=== PATIENT | male | born 1985 | race Two or more races ===

== ENCOUNTER 2016-07-25 17:13 | Emergency (ER) | payer SELFPAY ==
[~2016-07-25] VITALS: Ht 170.2 cm; Wt 89.8 kg
[2016-07-25 17:16] VITALS: BP 128/79
[2016-07-25] MEDS ORDERED: DIPHTH,PERTUSS(ACELL),TET TOX 0.5 ML DISP.SYRIN. VAX IM ONE (17:45)
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
[2016-07-25] MEDS ORDERED: NAPROXEN 500 MG TABLET PO STA (18:20)
[2016-07-25] MEDS ORDERED: CYCLOBENZAPRINE 10 MG TABLET. PO ONE (18:30)
[2016-07-25] MEDS ORDERED: HYDROcodone/APAP 5/325MG 1 TAB TABLET PO ONE (18:30)
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
== END 2016-07-25 18:48 | disposition home or self-care (01) ==
LOC: ER 17:13
DX: S60.221A Contusion of right hand, initial encounter (principal); S90.31XA Contusion of right foot, initial encounter; S80.01XA Contusion of right knee, initial encounter; Z88.0 Allergy status to penicillin; Y08.89XA Assault by other specified means, initial encounter; Y93.89 Activity, other specified; Y99.8 Other external cause status; Y92.89 Other specified places as the place of occurrence of the external cause
CPT/HCPCS: 73130; 73630; 90471; 90715; 99284-25

== ENCOUNTER 2016-10-11 10:13 | Emergency (ER) | payer SELFPAY ==
[~2016-10-11] VITALS: Ht 175.3 cm; Wt 95.3 kg
[2016-10-11 10:57] VITALS: BP 128/60
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
[2016-10-11] MEDS ORDERED: CYCL10TA2 PO (12:57)
[2016-10-11] MEDS ORDERED: DICL50TA4 PO (12:57)
[2016-10-11] MEDS ORDERED: METH4TAB2 PO (12:57)
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
== END 2016-10-11 12:58 | disposition home or self-care (01) ==
LOC: ER 10:13
DX: M77.9 Enthesopathy, unspecified (principal); M19.90 Unspecified osteoarthritis, unspecified site; Z88.0 Allergy status to penicillin; Y08.89XA Assault by other specified means, initial encounter; Y93.89 Activity, other specified; Y92.89 Other specified places as the place of occurrence of the external cause; Y99.8 Other external cause status
CPT/HCPCS: 73030; 99284

== ENCOUNTER 2017-03-16 16:22 | Emergency (ER) | payer SELFPAY ==
[2017-03-16 16:56] LABS: ADD MAN DIFF? NO
[2017-03-16 16:57] LABS: BASO # 0.1 x10^3/uL (0.0-0.2); BASO % 1 % (0-3); EOS # 0.2 x10^3/uL (0.0-0.7); EOS % 2 % (0-3); HEMATOCRIT 43.7 % (39.0-53.0); HEMOGLOBIN 14.5 g/dL (13.0-17.5); LYMPH # 2.9 x10^3/uL (1.0-4.8); LYMPH % 31 % (24-48); MEAN CORPUSCULAR HEMOGLOBIN 28 pg (25-35); MEAN CORPUSCULAR HGB CONC 33 g/dL (31-37); MEAN CORPUSCULAR VOLUME 84 fL (79-100); MONO # 0.4 x10^3/uL (0.0-1.1); MONO % 4 % (0-9); NEUT # 5.9 x10^3uL (1.8-7.7); NEUT % 62 % (31-73); PLATELET COUNT 302 x10^3/uL (140-400); RED CELL DISTRIBUTION WIDTH 14.1 % (11.5-14.5); WHITE BLOOD COUNT 9.5 x10^3/uL (4.0-11.0)
[2017-03-16 17:10] LABS: ANION GAP 12 (6-14); BLOOD UREA NITROGEN 12 mg/dL (8-26); BUN/CREATININE RATIO 13 (6-20); CARBON DIOXIDE 24 mmol/L (21-32); CHLORIDE 104 mmol/L (98-107); CREATININE 0.9 mg/dL (0.7-1.3); GFR 97.2; GLUCOSE 163 mg/dL (70-99); POTASSIUM 3.9 mmol/L (3.5-5.1); SODIUM 140 mmol/L (136-145)
[2017-03-16 17:10] LABS: D-DIMER 0.38 ug/mlFEU (0.00-0.50)
[2017-03-16 17:15] LABS: ALBUMIN 3.5 g/dL (3.4-5.0); ALBUMIN/GLOBULIN RATIO 0.9 (1.0-1.7); ALK PHOS 119 U/L (46-116); ALT (SGPT) 38 U/L (16-63); AST (SGOT) 23 U/L (15-37); TOTAL BILIRUBIN 0.4 mg/dL (0.2-1.0); TOTAL PROTEIN 7.2 g/dL (6.4-8.2)
[2017-03-16 17:18] LABS: TROPONINI < 0.017 ng/mL (0.000-0.055)
[2017-03-16] MEDS: KETOROLAC 15 MG/ML VIAL. IV ×2 (17:57)
== END 2017-03-16 18:06 | disposition home or self-care (01) ==
LOC: ER 16:22
DX: M94.0 Chondrocostal junction syndrome [Tietze] (principal); J06.9 Acute upper respiratory infection, unspecified; M19.90 Unspecified osteoarthritis, unspecified site; F17.200 Nicotine dependence, unspecified, uncomplicated; Z88.0 Allergy status to penicillin
CPT/HCPCS: 36415; 71046; 80053; 84484; 85025; 85379; 93005; 96374; 99285-25; J1885

== ENCOUNTER 2017-12-05 01:44 | Emergency (ER) | payer SELFPAY ==
[~2017-12-05] VITALS: Ht 177.8 cm; Wt 99.8 kg
[~2017-12-05 01:44] MED LIST: CYCL10TA2 PO; DICL50TA4 PO; IBUP-1007 PO; METH4TAB2 PO
[2017-12-05 01:47] VITALS: BP 132/81
--- NOTE | 2017-12-05 03:05 | PHYS DOC ---
Past Medical History Past Medical History: Arthritis Past Surgical History: No Surgical History Alcohol Use: Rarely Drug Use: None Adult General Chief Complaint Chief Complaint: SHOULDER INJURY HPI HPI Patient is a 32 year old male who presents with shoulder pain. The patient states 4 days ago he was leaning out some gutters. He was standing on a 6 foot ladder. He estimates that his feet were about 4 feet off the ground when he lost his balance and fell from the ladder. He landed on the left shoulder. Since then, he has had worsening pain with some swelling over the anterior aspect. He denies any loss of motor strength or sensation. He complains primarily of pain in that shoulder. Review of Systems Review of Systems Constitutional: Denies fever or chills Eyes: Denies HENT: Denies Respiratory: Denies GI: Denies abdominal pain Musculoskeletal: Denies back pain Integument: Denies rash Neurologic: Denies headache All other systems were reviewed and found to be within normal limits, except as documented in this note. Allergies Allergies Allergies Coded Allergies Type Severity Reaction Last Updated Verified Penicillins Allergy Unknown 03/16/17 Yes Physical Exam Physical Exam Constitutional: Well developed, well nourished, no acute distress HENT: Normocephalic, atraumatic, bilateral external ears normal, oropharynx moist Eyes: PERRLA, EOMI Neck: Normal range of motion, no midline tenderness Skin: Warm, dry, no bruising Back: normal exam Extremities: Her amount of swelling over the left shoulder compared to the right. The patient has full passive range of motion although with pain. He has 5 over 5 motor strength in that extremity. Sensation to light touch is intact over all dermatomes. Neurologic: Alert and oriented X 3 Psychologic: Affect normal Current Patient Data Vital Signs Vital Signs Date Time Temp Pulse Resp B/P (MAP) Pulse Ox O2 Delivery O2 Flow Rate FiO2 12/05/17 01:47 98.1 98 16 132/81 (98) 98 Room Air 98.1 EKG EKG [] Radiology/Procedures Radiology/Procedures [] Course & Med Decision Making Course & Med Decision Making Pertinent Labs and Imaging studies reviewed. (See chart for details) 03:00: Patient is seen and examined. X-ray of shoulder is ordered. 03:40: X-ray is reviewed. There is no acute fracture seen. There is possibly a very minor before meals separation. Patient will be discharged home. He is placed on a sling. Medications for pain. He is advised to follow-up with his primary care doctor or return to the ER for any complications. Karla Disclaimer Karla Disclaimer This electronic medical record was generated, in whole or in part, using a voice recognition dictation system. Departure Departure Referrals: NO PCP (PCP) Scripts Hydrocodone/Apap 5-325 (NORCO 5-325 TABLET) 1 Each Tablet 1-2 EACH PO PRN Q6HRS PRN for severe pain, #15 as needed for pain Prov: ERIC VALLE DO 12/05/17 Ibuprofen (IBUPROFEN) 800 Mg Tablet 800 MG PO PRN TID PRN for PAIN, #30 TAB take with food or milk to avoid upsetting stomach Prov: ERIC VALLE DO 12/05/17 ERIC VALLE DO Dec 05, 2017 03:05
[2017-12-05] MEDS ORDERED: HYDR-971 PO (03:36)
[2017-12-05] MEDS ORDERED: IBUP-1060 PO (03:36)
--- NOTE | 2017-12-05 07:40 | RAD ---
Left shoulder, 3 views, 12/05/2017: HISTORY: Fall, pain No fracture or dislocation is identified. The periarticular soft tissues are unremarkable. IMPRESSION: No acute left shoulder abnormality is detected. Electronically signed by: Murtaza Roberts MD (12/05/2017 7:36 AM) [facility]
== END 2017-12-05 03:47 | disposition home or self-care (01) ==
LOC: ER 01:44
DX: M25.512 Pain in left shoulder (principal); G89.11 Acute pain due to trauma; R22.32 Localized swelling, mass and lump, left upper limb; M19.90 Unspecified osteoarthritis, unspecified site; Z88.0 Allergy status to penicillin; W11.XXXA Fall on and from ladder, initial encounter; Y93.89 Activity, other specified; Y92.89 Other specified places as the place of occurrence of the external cause; Y99.8 Other external cause status
CPT/HCPCS: 73030; 99284

== ENCOUNTER 2018-04-26 13:36 | Emergency (ER) | payer SELFPAY ==
[~2018-04-26] VITALS: Ht 175.3 cm; Wt 95.3 kg
[~2018-04-26 13:36] MED LIST changes: +HYDR-3164 PO; +IBUP-1060 PO
[2018-04-26 14:55] VITALS: BP 120/83
--- NOTE | 2018-04-26 17:29 | PHYS DOC ---
Past Medical History Past Medical History: Arthritis Past Surgical History: No Surgical History Alcohol Use: Rarely Drug Use: None Adult General Chief Complaint Chief Complaint: EARACHE/EAR PAIN [facility] HPI Patient is a 33 year old male who presents to the emergency Department today with complaints of right external ear crusting, pain, and tenderness for the last week. He denies any fever, cough, nasal congestion, runny nose, nausea, vomiting, or diarrhea. In addition, Patient states that his left shoulder has hurt for the last 3 days after opening a car door. Patient states that he previously injured his left shoulder 3 months ago and continues to have intermittent pain from time to time. Currently, he rates the pain of his right anterior a 10 out of 10 on the pain scale. He denies any alleviating factors. He states this pain in his ear increases with sugar or palpation and pain in his shoulder increases with movement. Review of Systems Review of Systems Constitutional: Denies fever or chills [] Eyes: Denies changes [] HENT: Denies nasal congestion or sore throat; see history of present illness [] Respiratory: Denies cough or shortness of breath [] Cardiovascular: No additional information not addressed in HPI [] GI: Denies abdominal pain, nausea, vomiting, or diarrhea [] Musculoskeletal: See history of present illness Integument: Reports redness and honey crusting to right external ear Neurologic: Denies headache Allergies Allergies Allergies Coded Allergies Type Severity Reaction Last Updated Verified Penicillins Allergy Unknown 03/16/17 Yes Physical Exam Physical Exam Constitutional: Well developed, well nourished, no acute distress, non-toxic appearance. [] HENT: Normocephalic, atraumatic, bilateral TMs normal, erythema and crusting of right external ear consistent with impetigo, left external ear normal, nose normal. [] Eyes: conjunctiva normal, no discharge. [] Neck: Normal range of motion, no stridor. [] Cardiovascular:Heart rate regular rhythm, no murmur [] Lungs & Thorax: Bilateral breath sounds clear to auscultation [] Skin: Warm, dry Extremities: No cyanosis, no clubbing; left shoulder: Lateral tenderness to palpation, ROM intact- reports increased pain with ROM, no edema, no crepitus, no deformity. [] Neurologic: Alert and oriented X 3, no focal deficits noted. [] Psychologic: Affect normal, judgement normal, mood normal. [] Current Patient Data Vital Signs Vital Signs Date Time Temp Pulse Resp B/P (MAP) Pulse Ox O2 Delivery O2 Flow Rate FiO2 04/26/18 14:55 98.6 93 16 120/83 (95) 99 Room Air 98.6 EKG EKG [] Radiology/Procedures Radiology/Procedures PROCEDURE: SHOULDER 2+V LEFT EXAM: 3 views left shoulder DATE: 04/26/2018 4:52 PM INDICATION: LEFT SHOULDER PAIN X1 WEEK. HX FALL X3 MONTHS. PRIOR XRAY. COMPARISON: 12/05/2017 FINDINGS: No evidence of acute fracture or dislocation. Decreased bone mineral density. Joint spaces are preserved without significant degenerative/proliferative change. AC joint is congruent. No superior humeral head subluxation. IMPRESSION: No evidence of acute fracture or dislocation.[] Course & Med Decision Making Course & Med Decision Making Pertinent Labs and Imaging studies reviewed. (See chart for details) dx: Left shoulder pain, impetigo of right ear []X-ray left shoulder was negative for any acute findings or dislocation. Physical exam concerning for impetigo of right ear. Prescriptions written for naproxen, mupirocin ointment, and doxycycline. Patient encouraged follow-up with Dr. Naylor if shoulder symptoms persist, return to the ER symptoms worsen.Patient verbalized an understanding of home care, medications, follow-up , and return to ED instructions and was in agreement with the plan of care. Dragon Disclaimer Dragon Disclaimer This electronic medical record was generated, in whole or in part, using a voice recognition dictation system. Departure Departure Impression: Primary Impression: Impetigo Additional Impression: Pain of left shoulder joint on movement Disposition: 01 HOME, SELF-CARE Condition: STABLE Referrals: NO PCP (PCP) SUSANNE NAYLOR MD Patient Instructions: Impetigo, Shoulder Pain, [id number] Additional Instructions: Fill the prescriptions and take as directed. Wash hands thoroughly after touching affected area. For your shoulder pain, activity as tolerated. May apply ice or heat to area as needed for pain. Follow up with Dr. Naylor for further evaluation if pain persists , your x-ray was negative today. Return to the ER if your symptoms worsen. Scripts Naproxen (NAPROXEN) 500 Mg Tablet 1 TAB PO BID PRN for PAIN for 10 Days, #20 TAB 0 Refills Prov: SILVANO JACOB APRN 04/26/18 Mupirocin (MUPIROCIN OINTMENT) 22 Gm Oint...g. 1 MARII TP TID for WOUND CARE for 7 Days, #1 TUBE 0 Refills Prov: SILVANO JACOB APRN 04/26/18 Doxycycline Hyclate (DOXYCYCLINE HYCLATE) 100 Mg Tablet 1 TAB PO BID, #14 TAB 0 Refills Prov: SILVANO JACOB APRN 04/26/18 Problem Qualifiers SILVANO JACOB APRN Apr 26, 2018 17:29
--- NOTE | 2018-04-26 17:46 | RAD ---
EXAM: 3 views left shoulder DATE: 04/26/2018 4:52 PM INDICATION: LEFT SHOULDER PAIN X1 WEEK. HX FALL X3 MONTHS. PRIOR XRAY. COMPARISON: 12/05/2017 FINDINGS: No evidence of acute fracture or dislocation. Decreased bone mineral density. Joint spaces are preserved without significant degenerative/proliferative change. AC joint is congruent. No superior humeral head subluxation. IMPRESSION: No evidence of acute fracture or dislocation. Electronically signed by: Joseph Sandhu MD (04/26/2018 5:43 PM) [facility]
[2018-04-26] MEDS ORDERED: DOXY100T PO (18:18)
[2018-04-26] MEDS ORDERED: NAPR-514 PO (18:18)
[2018-04-26] MEDS ORDERED: MUPI22OI2 TP (18:18)
== END 2018-04-26 18:55 | disposition home or self-care (01) ==
LOC: ER 13:36
DX: M25.512 Pain in left shoulder (principal); L01.00 Impetigo, unspecified; M19.90 Unspecified osteoarthritis, unspecified site; Z88.0 Allergy status to penicillin
CPT/HCPCS: 73030; 99283

== ENCOUNTER 2020-08-15 11:00 | Emergency (ER) | payer SELFPAY ==
[2018-12-21 06:17] VITALS: BP 143/89
[~2020-08-15 11:00] MED LIST changes: +DOXY100T PO; +MUPI22OI2 TP; +NAPR-514 PO
== END 2020-08-15 11:30 | disposition left against medical advice (07) ==
LOC: ER 11:00
DX: R42 Dizziness and giddiness (principal); Z53.21 Procedure and treatment not carried out due to patient leaving prior to being seen by health care provider

== ENCOUNTER 2021-05-17 06:25 | Emergency (ER) | payer SELFPAY ==
[~2021-05-17] VITALS: Ht 172.7 cm; Wt 81.8 kg
[~2021-05-17 06:25] MED LIST changes: +CYCL10TA19 PO; -CYCL10TA2 PO
[2021-05-17 06:30] VITALS: BP 137/85
--- NOTE | 2021-05-17 06:46 | PHYS DOC ---
Past Medical History Past Medical History: Arthritis Past Surgical History: No Surgical History Smoking Status: Current Every Day Smoker Alcohol Use: Rarely Drug Use: None General Adult EDM: Chief Complaint: HYPERGLYCEMIA HPI: HPI: Patient is a 36 year old [f__sex] who presents with [] Review of Systems: Review of Systems: Constitutional: Denies fever or chills. [] Eyes: Denies change in visual acuity. [] HENT: Denies nasal congestion or sore throat. [] Respiratory: Denies cough or shortness of breath. [] Cardiovascular: Denies chest pain or edema. [] GI: Denies abdominal pain, nausea, vomiting, bloody stools or diarrhea. [] : Denies dysuria. [] Musculoskeletal: Denies back pain or joint pain. [] Integument: Denies rash. [] Neurologic: Denies headache, focal weakness or sensory changes. [] Endocrine: Denies polyuria or polydipsia. [] Lymphatic: Denies swollen glands. [] Psychiatric: Denies depression or anxiety. [] Heart Score: C/O Chest Pain: No Risk Factors: Risk Factors: DM, Current or recent (<one month) smoker, HTN, HLP, family history of CAD, obesity. Risk Scores: Score 0 - 3: 2.5% MACE over next 6 weeks - Discharge Home Score 4 - 6: 20.3% MACE over next 6 weeks - Admit for Clinical Observation Score 7 - 10: 72.7% MACE over next 6 weeks - Early Invasive Strategies Allergies: Allergies: Allergies Coded Allergies Type Severity Reaction Last Updated Verified Penicillins Allergy Unknown 03/16/17 Yes Physical Exam: PE: Constitutional: Well developed, well nourished, no acute distress, non-toxic appearance. [] HENT: Normocephalic, atraumatic, bilateral external ears normal, oropharynx moist, no oral exudates, nose normal. [] Eyes: PERRLA, EOMI, conjunctiva normal, no discharge. [] Neck: Normal range of motion, no tenderness, supple, no stridor. [] Cardiovascular:Heart rate regular rhythm, no murmur [] Lungs & Thorax: Bilateral breath sounds clear to auscultation [] Abdomen: Bowel sounds normal, soft, no tenderness, no masses, no pulsatile masses. [] Skin: Warm, dry, no erythema, no rash. [] Back: No tenderness, no CVA tenderness. [] Extremities: No tenderness, no cyanosis, no clubbing, ROM intact, no edema. [] Neurologic: Alert and oriented X 3, normal motor function, normal sensory function, no focal deficits noted. [] Psychologic: Affect normal, judgement normal, mood normal. [] Current Patient Data: Labs: Laboratory Tests Test 05/17/21 06:37 Glucose (Fingerstick) 348 mg/dL (70-99) H EKG: EKG: [] Radiology/Procedures: Radiology/Procedures: [] Course & Med Decision Making: Course & Med Decision Making Pertinent Labs and Imaging studies reviewed. (See chart for details) Patient states that he does not want to be seen by me or need any intervention. Patient states that he would follow-up with his family doctor. Risks and benefits were explained to the patient and patient understands patient is AAO x3 . Karla Disclaimer: Karla Disclaimer: This electronic medical record was generated, in whole or in part, using a voice recognition dictation system. Departure Departure Referrals: NO PCP (PCP) BRADLEY CARRASCO DO May 17, 2021 06:46
== END 2021-05-17 06:46 | disposition left against medical advice (07) ==
LOC: ER 06:25
DX: R73.9 Hyperglycemia, unspecified (principal); F17.200 Nicotine dependence, unspecified, uncomplicated; Z88.0 Allergy status to penicillin; Z53.21 Procedure and treatment not carried out due to patient leaving prior to being seen by health care provider
CPT/HCPCS: 82962